=== PATIENT | female | born 2005 | race Hispanic/Latino ===

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

== ENCOUNTER 2025-06-04 18:05 | Emergency (ER) | payer MEDICAID ==
[~2025-06-04] VITALS: Ht 144.8 cm; Wt 63.5 kg
[~2025-06-04 18:05] MED LIST: CEPH500T PO
--- NOTE | 2025-06-04 18:13 | ERN ---
ED Note History of Present Illness Stated Complaint: ABDOMINAL PAIN Chief Complaint: Abdominal Pain Time Seen by MD: 18:07 Dictation: PATIENT IS A 19-YEAR-OLD FEMALE COMING IN TODAY WITH EPIGASTRIC PAIN WITH NAUSEA VOMITING ONSET 0 800 THIS MORNING. SHE STATES SHE HAS HAD CHILLS. NO HISTORY OF GALLBLADDER DISEASE NO PANCREATITIS. SHE DENIES . PRIMARY CARE DOCTOR Allergies: Coded Allergies: Penicillins (Unverified Allergy, Unknown, 06/04/25) Home Meds Active Scripts Cephalexin (Cephalexin) 500 Mg Tablet, 500 MG PO TID for 5 Days, #15 TAB Prov:YVONNE HENLEY MD 11/17/23 Past Medical History Past Medical History: No Pertinent History Surgical History: None : 1 Para: 0 Aborts: 0 RN Note Reviewed/Agreed w/PFSH: Yes Review of System Dictation CONSTITUTIONAL: NEGATIVE EXCEPT FOR HPI CHILLS DAMAGE CHILLS HEAD/FACE: NEGATIVE EXCEPT FOR HPI EENT: NEGATIVE EXCEPT FOR HPI RESPIRATORY: NEGATIVE EXCEPT FOR HPI GASTROINTESTINAL/ABDOMINAL: NEGATIVE EXCEPT FOR HPI EPIGASTRIC PAIN WITH NAUSEA VOMITING GENITOURINARY: NEGATIVE EXCEPT FOR HPI MUSCULOSKELETAL: NEGATIVE EXCEPT FOR HPI INTEGUMENTARY: NEGATIVE EXCEPT FOR HPI NEUROLOGICAL/PSYCH: NEGATIVE EXCEPT FOR HPI HEMATOLOGIC/LYMPHATIC: NEGATIVE EXCEPT FOR HPI ALL SYSTEMS NEGATIVE, EXCEPT NOTED ABOVE. 13 POINT REVIEW OF SYSTEMS ASSESSED AND ALL NEGATIVE EXCEPT FOR ABOVE. Initial Vital Sign VS Vital Signs Date Time Temp Pulse Resp B/P (MAP) Pulse Ox O2 Delivery O2 Flow Rate FiO2 06/04/25 18:17 98.6 70 16 111/72 100 Room Air 0 06/04/25 18:22 21 Physical Exam Dictation VITAL SIGNS REVIEWED GENERAL APPEARANCE: ALERT, ORIENTED X 3, NO ACUTE DISTRESS, WELL DEVELOPED, NOURISHED. HEAD AND FACE: NON-TRAUMATIC. EYES: PERRL, PINK CONJUNCTIVAS, EYELID NO TRAUMA, ANTERIOR CHAMBER WITH ARCUS SENILIS. EARS: PINNAS INTACT AND NO SIGNS OF TRAUMA OR ERYTHEMA EAR CANALS CLEAR AND NO DISCHARGE TM NO ERYTHEMA NOSE: NO DISCHARGE, NO BLEEDING. OROPHARYNX: MOUTH NORMAL, TONGUE PINK, PHARYNX CLEAR,NO ERYTHEMA, TONSILS NO EXUDATES, NO ABSCESSES NOTED, MUCOUS MEMBRANE MOIST NECK: SUPPLE, NON-TENDER, NO THYROMEGALY, NO MASSES, NO JVD, NO BRUITS BREAST:DEFERRED CHEST:NO TENDERNESS, NO CREPITUS, NO PARADOXICAL MOVEMENT, NO RETRACTIONS LUNGS:CLEAR, WELL-VENTILATED, SYMMETRIC, NO RALES, NO WHEEZING, NO RHONCHI, NO STRIDOR, GOOD BREATH SOUNDS BILATERALLY HEART: REGULAR RATE, REGULAR RHYTHM, NO MURMUR, NO GALLOPS VASCULAR: NO PERIPHERAL EDEMA, ABDOMEN: SOFT, POSITIVE BOWEL SOUNDS, MODERATE EPIGASTRIC PAIN. RECTAL: DEFERRED GENITAL: DEFERRED NEUROLOGICAL: NORMAL SPEECH, MOTOR FUNCTION INTACT, SENSORY FUNCTION INTACT MUSCULOSKELETAL: NECK NONTENDER, FULL RANGE OF MOTION, BACK NONTENDER, FULL RANGE OF MOTION, EXTREMITIES: NONTENDER, FULL RANGE OF MOTION SKIN: COLOR PINK, DRY, NO TURGOR, NO RASH, NO LACERATIONS, NO ABRASIONS, NO CONTUSIONS. LYMPHATIC: DEFERRED Results (Laboratory/Radiology) Laboratory/Radiology Laboratory Tests Test 06/04/25 18:30 Urine Color YELLOW (YELLOW) Urine Appearance CLOUDY (CLEAR) H Urine pH 7.0 (5.0-8.0) Urine Specific [place] 1.037 (1.001-1.031) Urine Protein 70 mg/dL (NEGATIVE) H Urine Glucose (UA) NEGATIVE mg/dL (NEGATIVE) Urine Ketones 150 mg/dL (NEGATIVE) H Urine Occult Blood NEGATIVE (NEGATIVE) Urine Nitrate NEGATIVE (NEGATIVE) Urine Bilirubin NEGATIVE mg/dL (NEGATIVE) Urine Urobilinogen 0.2 mg/dL (0.2-1.0) Urine Leukocyte Esterase 25 Halle/uL (NEGATIVE) H Urine RBC 6-10 /HPF (0-1) H Urine WBC 2-5 /HPF (0-1) H Urine Squamous Epithelial Cells FEW /HPF (0-2) Urine Bacteria RARE /HPF (None Seen) Urine HCG, Qualitative NEGATIVE (NEGATIVE) Labs Reviewed?: Yes ED Course ED Course Orders Procedure Category Date Status Time Cbc With Differential LAB 06/04/25 Logged 18:10 ,Urine Test LAB 06/04/25 Complete 18:10 Urinalysis Profile LAB 06/04/25 Complete 18:10 0.9%Nacl 1000ml (Ns PHA 06/04/25 In Process 1000ml) 18:30 Ondansetron 4mg Inj PHA 06/04/25 In Process (Zofran 4mg Inj) 18:30 Lipase LAB 06/04/25 Logged 18:10 Morphine 4mg Syg PHA 06/04/25 In Process (Morphine 4mg Syg) 18:30 Current Medications Medications (Trade) Dose Ordered Sig/Ta Route PRN Reason Start Time Stop Time Status Last Admin Dose Admin Morphine Sulfate (morPHINE 4MG SYG) 2 mg ONCE IVP 06/04/25 18:30 06/04/25 22:30 Ondansetron HCl (zoFRAN 4MG INJ) 4 mg ONCE IVP 06/04/25 18:30 06/04/25 22:30 Sodium Chloride 1,000 ml @ 0 mls/hr ONCE IV 06/04/25 18:30 06/05/25 18:29 Vital Signs Date Time Temp Pulse Resp B/P (MAP) Pulse Ox O2 Delivery O2 Flow Rate FiO2 06/04/25 18:22 98.6 70 16 111/72 100 Room Air* 0 21 06/04/25 18:17 98.6 70 16 111/72 100 Room Air 0 Medical Decision Making [facility] 1927/PATIENT CALLED SEVERAL TIMES BY PHLEBOTOMY FOR LAB DRAW. SHE IS NOT AVAILABLE IN THE WAITING ROOM DX & DISP Disposition: AMA Departure Impression: Primary Impression: Epigastric pain Additional Impression: Nausea & vomiting Condition: Stable Referrals: SELF,REFERRAL (PCP) Time of Disposition: 19:29 I have reviewed the case, and I agree with, Diagnosis and Plan FAZAL BERMUDEZ [employer] Jun 04, 2025 18:13
[2025-06-04 18:22] VITALS: BP 111/72; PULSE 70; RESP 16; TEMP 98.6; O2SAT 100
[2025-06-04] MEDS ORDERED: 0.9%NACL 1000ML 1,000 ML IV SCH (18:30)
[2025-06-04 18:45] LABS: APPEARANCE,URINE CLOUDY (CLEAR); GLUCOSE, URINE (UA) NEGATIVE (NEGATIVE); LEUKOCYTE ESTERASE ,URINE 25 Leu/uL (NEGATIVE); NITRATE,URINE NEGATIVE (NEGATIVE); OCCULT BLOOD,URINE NEGATIVE (NEGATIVE)
[2025-06-04 18:47] LABS: ADD UA MICROSCOPIC YES
[2025-06-04 18:48] LABS: SQUAMOUS EPITHELIAL CELL,UR FEW /HPF (0-2)
[2025-06-04 18:51] LABS: HCG,QUALITATIVE URINE NEGATIVE (NEGATIVE)
== END 2025-06-04 19:30 | disposition left against medical advice (07) ==
LOC: EDH 18:05
DX: R10.13 Epigastric pain (principal); R11.2 Nausea with vomiting, unspecified; Z88.0 Allergy status to penicillin; Z79.899 Other long term (current) drug therapy
CPT/HCPCS: 81001; 81025; 99283